=== PATIENT | male | born 1980 | race Hispanic/Latino ===

== ENCOUNTER 2025-02-10 08:00 | Day surgery (SDC) | payer OTHER ==
[2025-02-08 10:38] LABS: IMMATURE GRANULOCYTE ABSOLUTE 0.01 K/uL (0-1); NUCLEATED RED BLOOD CELLS 0.0 % (0.0-0.19); PLATELET COUNT (AUTO) 400 K/uL (130-400); RED BLOOD CELL COUNT(AUTO) 5.40 MIL/uL (4.50-6.20); RED CELL DISTRIBUTION WIDTH 13.0 % (11.0-15.5); WHITE BLOOD COUNT (AUTO) 4.3 K/uL (4.8-10.8)
[2025-02-08 10:44] LABS: CREATININE 0.8 mg/dL (0.5-1.3); GLOMERULAR FILTR. RATE CALC 113.0 mL/min (>90); GLUCOSE,RANDOM 87.0 mg/dL (70-105); SODIUM SERUM 141.0 mmol/L (136-145); UREA NITROGEN, BLOOD 10.0 mg/dL (7-18)
[2025-02-09 09:13] VITALS: BP 112/74; PULSE 56; RESP 17; TEMP 97.6
[2025-02-10] VITALS (14 sets, daily range): BP systolic 125–143; BP diastolic 69–85; PULSE 52–60; RESP 14–17; TEMP 97.4–97.7
[2025-02-10] MEDS ORDERED: PROMETHAZINE HCL 25 MG/ML 1ML AMPULE IM PRN (09:00)
[2025-02-10] MEDS ORDERED: MIDAZOLAM HCL 1 MG/ML 2ML VIAL ONE (10:24)
[2025-02-10] MEDS ORDERED: LIDOCAINE PF 100MG/5ML (2%) SYRINGE 5ML ONE (10:36)
[2025-02-10] MEDS ORDERED: NEOSTIGMINE METHYLSULFATE 1MG/ML IV ONE (10:37)
[2025-02-10] MEDS ORDERED: GLYCOPYRROLATE 0.2 MG/ML 5 ML VIAL ONE (10:37)
[2025-02-10] MEDS ORDERED: SUCCINYLCHOLINE CHLORIDE 20 MG/ML 10 ML VIAL ONE (10:37)
[2025-02-10] MEDS: LACTATED RINGERS 1000ML 1,000 ML IV ONE (10:45)
[2025-02-10] MEDS ORDERED: TUMERIC PO (11:05)
[2025-02-10] MEDS ORDERED: IBUP-2077 PO (11:05)
[2025-02-10] MEDS ORDERED: BUPR100T13 PO (11:05)
[2025-02-10] MEDS ORDERED: TADA20TA PO (11:05)
[2025-02-10] MEDS ORDERED: SODIUM CHLORIDE NASAL (11:05)
[2025-02-10] MEDS ORDERED: BUSP15TA3 PO (11:05)
[2025-02-10] MEDS ORDERED: LORA10TA7 PO (11:05)
[2025-02-10] MEDS ORDERED: ACET-66 PO (11:05)
[2025-02-10] MEDS ORDERED: RIZA10TA41 PO (11:05)
[2025-02-10] MEDS ORDERED: AZEL205.2 NS (11:05)
[2025-02-10] MEDS ORDERED: [UNRECOGNIZED DRUG - OTHER] SQ (11:05)
[2025-02-10] MEDS ORDERED: [UNRECOGNIZED DRUG - OTHER] PO (11:07)
[2025-02-10] MEDS ORDERED: VITAMIN D PO (11:07)
[2025-02-10] MEDS ORDERED: ACET-2079 PO (12:10)
--- NOTE | 2025-02-10 12:19 | OP ---
Operative Note: DATE OF PROCEDURE: 02/10/25 SURGEON: LENA VELIZ MD SPECIAL NEEDS CHILD CAREGIVER: [Ignacia Garcia CFA] ANESTHESIA: [General anesthesia] ANESTHESIOLOGIST/HOMICIDE SQUAD CAPTAIN: [Nini Mcknight CRNA] PREOPERATIVE DIAGNOSIS: [Right knee medial meniscal tear, chondromalacia patella] POSTOPERATIVE DIAGNOSIS: [Right knee medial meniscal tear, chondromalacia patella, medial synovial plica] PROCEDURE: [Right knee diagnostic arthroscopy, partial medial meniscectomy, excision of medial synovial plica] ESTIMATED BLOOD LOSS: [Less than 10 mL] INDICATIONS: [43-year-old male with a history of a pain to the right knee that was evaluated in our office [facility]. the patient has a an MRI that showed the presence of a medial meniscal tear which seems to be a vacuum nature. The MRI also shows the presence of chondromalacia patella grade 3. The patient is brought to the operating room for arthroscopic partial medial meniscectomy procedure that he understood, risks, benefits and possible complications and agreed to sign the consent form] DESCRIPTION OF PROCEDURE: [After adequate general anesthesia was achieved the patient's right lower extremity was prepped and draped in the usual manner previous placement of the tourniquet in the proximal thigh. The extremity was elevated and exsanguinated with an Esmarch band and the tourniquet was inflated to 250 mmHg the Esmarch band been then removed. The leg was brought to the side of the bed with the knee in 90 degrees of flexion and 2 small incisions were made medial and lateral to the patella tendon at the joint line level through the skin followed by blunt dissection with a trocar penetrating into the joint. Through the lateral portal the arthroscopic cannula was inserted and then after the cannula was removed the scope was inserted in the sheath bringing the knee on the table in extension placing the scope in the suprapatellar area which was noted to be normal with a normal quadriceps tendon and patellofemoral joint alignment and tracking but with the degenerative changes in the center of the patella compatible with small area of chondromalacia grade 3. The knee was then brought into flexion on the side of the bed and immediately our vision was block by the presence of a medial plica that interfere between the patella and femoral condyle and was slightly thick and for this reason we proceeded to excise it with the use of the shaver. Then the scope follow into the medial compartment where after valgus stress was done we were able to visualize the medial compartment and a tear of the body of the medial meniscus, which was very unstable, was easily visualized. With the use of the meniscal shaver as well as an trimmers we proceeded to remove the torn tissue leaving hook stable tissue removing all the debris. We then proceeded to bring the scope to the intercondylar notch noticing that the ACL and PCL were normal and then with a [id number] position of the knee we were able to visualize the lateral compartment which show normal characteristics of the meniscus and the articular surface, as well as the popliteus tendon The arthroscope was then removed from the joint as well as the fluid and we then proceeded to close the incisions with #3-0 nylon simple stitches. A soft dressing was applied to cover the small incisions followed by application of an Rodríguez bandage. The drapes were then removed after the tourniquet was deflated and the patient was transferred to the stretcher and then taken to recovery room for follow-up by anesthesia. There w ere no complications during the procedure.] LENA VELIZ MD Feb 10, 2025 12:19
--- NOTE | 2025-02-10 12:35 | NUR ---
POST-OP RECOVERY SONNY BANDAGE TO RIGHT KNEE. DRESSING DRY AND INTACT. PATIENT ABLE TO WIGGLE TOES. NO REDNESS OR SWELLING NOTED. NO ACTIVE BLEEDING OR DRAINAGE NOTED.
== END 2025-02-10 13:08 | disposition home or self-care (01) ==
LOC: DAH 08:00
PROVIDERS: ATTEND Orthopaedic Surgery
DX: S83.241A Other tear of medial meniscus, current injury, right knee, initial encounter (principal); M22.41 Chondromalacia patellae, right knee; F43.10 Post-traumatic stress disorder, unspecified; E11.9 Type 2 diabetes mellitus without complications; E66.01 Morbid (severe) obesity due to excess calories; Z68.41 Body mass index [BMI] 40.0-44.9, adult; Z98.890 Other specified postprocedural states; Z79.899 Other long term (current) drug therapy; X58.XXXA Exposure to other specified factors, initial encounter; Y93.89 Activity, other specified; Y92.89 Other specified places as the place of occurrence of the external cause; Y99.8 Other external cause status
CPT/HCPCS: 80048; 85025; 36415; 29881; 82948; A4663; J7120 ×2; A4649 ×2; J0690 ×3; J3010 ×2; J1100; J0330; J3490 ×2; J2003; J2250; J2704; J2405 ×2; J2710; A6223; A4930; A4215; A4213; A4222; A4221; A4216; A6450; A4223 ×2